=== PATIENT | male | born 1955 | race Caucasian/White ===

== ENCOUNTER → 2018-07-01 07:16 | Outpatient (CLI) | payer OTHER, SELFPAY ==
[2018-07-01 08:01] LABS: Glucose 102 mg/dL (80-110)
[2018-07-01 08:29] LABS: Prostate Specific Antigen Scrn 1.22 ng/mL (0.1-4.0)
[2018-07-01 11:38] LABS: Vitamin D 25 Hydroxy (D3) 47.6 ng/mL (30.0-100.0)
== END ==
PROVIDERS: Family Provider Family Medicine; PCP Student in an Organized Health Care Education/Training Program; Visit Provider Student in an Organized Health Care Education/Training Program
DX: E55.9 Vitamin D deficiency, unspecified (principal); Z12.5 Encounter for screening for malignant neoplasm of prostate; Z71.1 Person with feared health complaint in whom no diagnosis is made
CPT/HCPCS: 36415; 82306; 82947; G0103

== ENCOUNTER → 2019-04-23 10:02 | Outpatient (CLI) | payer OTHER, SELFPAY ==
[2019-04-23 11:31] LABS: Blood Urea Nitrogen 16 mg/dL (9-20); Calcium 10.5 mg/dL (8.4-10.2); Carbon Dioxide 29 mmol/L (22-32); Chloride 103 mmol/L (98-107); Estimated Glomerular Filt Rate > 60.0 mL/min (>60); Glucose 79 mg/dL (80-110); HEMOLYSIS < 15 (0-50); Sodium 141 mmol/L (137-145)
[2019-04-23 11:32] LABS: Potassium 5.4 mmol/L (3.4-5.1)
== END ==
PROVIDERS: PCP Student in an Organized Health Care Education/Training Program; Visit Provider Student in an Organized Health Care Education/Training Program
DX: I10 Essential (primary) hypertension (principal)
CPT/HCPCS: 36415; 80048

== ENCOUNTER 2019-09-15 08:32 | Emergency (ER) | payer OTHER, SELFPAY ==
[2019-09-15 08:42] VITALS: PULSE 89; RESP 16; TEMP 36.8; O2SAT 98; BMI 30.4
[2019-09-15 08:51] VITALS: BP 182/104; PULSE 89; RESP 16; TEMP 36.8; O2SAT 98; BMI 30.4
[2019-09-15 08:52] VITALS: BP 193/110
--- NOTE | 2019-09-15 09:04 | ED_ITS ---
HPI - General Adult General Chief complaint: Altered Mental Status Stated complaint: TROUBLE REMEMBERING THINGS Time Seen by Provider: 09/15/19 08:34 Source: patient Mode of arrival: Ambulatory Limitations: no limitations History of Present Illness HPI narrative: Patient is a 64-year-old male here for evaluation of an event that occurred earlier today. Patient states that last night he went to sleep at his normal [facility]. States he woke up this morning in his normal [facility]. Had no symptoms. States that he went to look out the window and there was a pile of mulch outside his window and he states that he could not remember why it was they are how it got there. He reported no other associated symptoms at the time. He is unsure how long the memory lapse lasted however he did state that he felt like was a very short period of time. He is now completely asymptomatic. He remembers everything about the mulch pile. Has never had anything like this happen in the past. He stated that his and daughter made him come in for an evaluation. Does have a history of hypertension. He did take his blood pressure medicines this morning. Related Data Home Medications Medication Instructions Recorded Confirmed CA PANTOTHENATE/FOLIC ACID/VIT 1 tab PO QDAY #0 12/28/12 06/25/19 (MULTIVITAMIN) Fish Oil (Fish Oil 500 MG Softgel) 500 mg PO QDAY #0 12/28/12 06/25/19 cholecalciferol (vitamin D3) 2,000 unit PO #0 06/07/17 06/25/19 [Vitamin D3] Previous Rx's Medication Instructions Recorded losartan 50 mg-hydrochlorothiazide 1 tab PO DAILY #90 tab 10/20/18 12.5 mg tablet sildenafil (pulm.hypertension) 20 20 mg PO SEE INSTRUCTIONS #30 tab 02/23/19 mg tablet Allergies Allergy/AdvReac Type Severity Reaction Status Date / Time DINA Inhibitors AdvReac Mild Cough Verified 09/15/19 08:55 Review of Systems Constitutional Constitutional: Denies chills, Denies fatigue, Denies frequent falls, Denies headache(s), Denies lethargy and Denies weakness Eyes Eyes: Denies blurry vision, Denies change in vision, Denies diplopia and Denies loss of vision ENT Ears, Nose, Mouth, and Throat: Denies vertigo, Denies dizziness, Denies headache(s), Denies disequilibrium and Denies sore throat Cardiovascular Cardiovascular: Denies chest pain, Denies syncope, Denies palpitations and Denies dyspnea Respiratory Respiratory: Denies cough and Denies dyspnea Gastrointestinal Gastrointestinal: Denies abdominal pain, Denies nausea and Denies vomiting Genitourinary Genitourinary: Denies dysuria Musculoskeletal Musculoskeletal: Denies abnormal gait, Denies myalgias and Denies arthralgias Integumentary/Breasts Skin/Breast: Denies lesions and Denies rash Neurologic Neurologic: Denies abnormal movements, Denies abnormal gait, Denies behavioral changes, Reports confusion, Denies vertigo, Denies dizziness, Denies syncope, Denies frequent falls, Denies headache(s), Denies lack of coordination, Denies focal weakness, Denies loss of vision, Reports memory loss, Denies other visual disturbances, Denies convulsions, Denies seizure-like activity, Denies sensory deficit, Denies paresthesias, Denies tremor(s), Denies disequilibrium and Denies weakness Psychiatric Psychiatric: Denies behavioral changes, Reports confusion and Reports memory loss Endocrine Endocrine: Denies fatigue and Denies palpitations Hematologic/Lymphatic Hematologic/Lymphatic: Denies easy bleeding and Denies easy bruising Patient History Medical History Finger fracture (Resolved) Hyperlipidemia (Chronic) Hypertension (Chronic) Surgical History (Updated 06/02/18 @ 15:17 by Maryanne Johnson) History of colonoscopy with polypectomy (Resolved 10/21/17) History of hand surgery (Resolved 1980) Social History household members: significant other Smoking Status: Current some day smoker Smoking Status: Current some day smoker alcohol intake frequency: holidays/special occasions only Substance Use Type: does not use Exam Initial Vital Signs Initial Vital Signs: Vital Signs Temperature 98.3 F 09/15/19 08:42 Pulse Rate 89 09/15/19 08:42 Respiratory Rate 16 09/15/19 08:42 Pulse Oximetry 98 09/15/19 08:42 Const General: cooperative, comfortable, well developed, well groomed and No acute distress Limitations: mental status not altered HENMT Head: normal to inspection and normocephalic Eyes Pupils: PERRL EOM: EOM intact bilaterally Resp Effort & Inspection: normal respiratory effort Auscultation: clear to auscultation bilaterally Cardio Rate: regular rate Rhythm: regular rhythm GI Inspection: non-distended Palpation: soft Skin Lesions: no lesions Rashes: no rashes Neuro General: alert, awake and oriented x3 Cranial Nerves: CN's II-XI intact bilaterally Cognition: normal cognition Speech: speech normal Gait: normal gait Motor: muscle tone normal throughout Sensory Exam: no sensory deficits noted Coordination: [id number] test normal Extrem General: normal to inspection and capillary refill normal Psych Appearance: grossly normal and well kempt Scores GCS Hardesty coma scale eye opening: Spontaneous Hardesty coma scale verbal response: Orientated Hardesty coma scale motor response: Obey commands Hardesty coma scale total score: 15 Course Vital Signs Vital signs: Vital Signs - 8 hr 09/15/19 08:42 09/15/19 08:51 09/15/19 08:52 Temperature 98.3 F 98.3 F Pulse Rate 89 89 Respiratory Rate 16 16 Blood Pressure 182/104 H Blood Pressure [Right Arm] 193/110 H Pulse Oximetry 98 98 Medical Decision Making [facility] [place] Narrative Medical decision making narrative: Patient had a very short course of memory lapse this morning. He now seems to have completely resolved. He denies any other associated symptoms. He has a completely normal neurologic exam today. Had a long discussion with him regarding his symptoms. Unsure the exact etiology of his symptoms but I do have low suspicion for stroke or TIA given his normal neurologic exam and the lack of his other symptoms earlier today. Has never had the symptoms in the past. Low suspicion for dementia. Low suspicion for intoxication or toxicologic etiology. Patient was hypertensive however this very well could be explained by a is uncertain of what happened earlier today, his anxiety related to it, the fact that he just walked in from the parking lot. I have low suspicion that his high blood pressure caused the symptoms earlier today. I feel that blood work is not going to be helpful for him. I feel that the head CT is going to be unhelpful given the fact that his symptoms have completely resolved. Patient agrees with this. We will hold on further workup for now. We did discuss his blood pressure in the importance of taking his blood pressure at home and recording it so that he could talk with his primary doctor about it. He was given strict return precautions. He expressed understanding and agreement. Discharge Plan Departure Patient Disposition: Home Clinical Impression: Transient memory loss Hypertension Qualifiers: Hypertension type: unspecified Qualified Code(s): I10 - Essential (primary) hypertension Instructions: Essential Hypertension Activity Restrictions/Additional Instructions: I recommend that you take your blood pressure at home like we discussed and record the values so that you can talk with Dr. Saunders about any potential medication changes. You have no restrictions on your activities. If the sympto ms that brought you into the emergency department this morning reoccur or you develop any other new symptoms like we discussed please return to the emergency department for further evaluation. Prescriptions: No Action CA PANTOTHENATE/FOLIC ACID/VIT (MULTIVITAMIN) 1 tab PO QDAY Qty: 0 RF: 0 Fish Oil (Fish Oil 500 MG Softgel) 500 mg PO QDAY Qty: 0 RF: 0 cholecalciferol (vitamin D3) [Vitamin D3] 2,000 UNIT capsule 2,000 unit PO Qty: 0 RF: 0 losartan-hydrochlorothiazide 50-12.5 mg tablet 1 tab PO DAILY Qty: 90 RF: 3 sildenafil (pulm.hypertension) 20 mg tablet 20 mg PO SEE INSTRUCTIONS Qty: 30 RF: 5 Referrals: Jason Sprague MD [Primary Care Provider] -
== END 2019-09-15 09:22 | disposition home or self-care (01) ==
PROVIDERS: Emergency Provider Emergency Medicine; PCP Student in an Organized Health Care Education/Training Program
DX: R41.3 Other amnesia (principal); I10 Essential (primary) hypertension; R41.0 Disorientation, unspecified
CPT/HCPCS: 99283; 99284

== ENCOUNTER → 2020-03-07 16:06 | Outpatient (CLI) | payer MEDICARE, OTHER, SELFPAY ==
[2020-03-07 16:50] LABS: HEMOLYSIS < 15 (0-50)
[2020-03-07 16:57] LABS: BUN Creatinine Ratio 25.6 (6-22); Blood Urea Nitrogen 20 mg/dL (9-20); Calcium 9.8 mg/dL (8.4-10.2); Carbon Dioxide 26 mmol/L (22-32); Chloride 104 mmol/L (98-107); Estimated Glomerular Filt Rate > 60.0 mL/min (>60); Glucose 85 mg/dL (80-110); Potassium 4.1 mmol/L (3.4-5.1); Sodium 138 mmol/L (137-145)
== END ==
PROVIDERS: PCP Student in an Organized Health Care Education/Training Program; Referring Provider Student in an Organized Health Care Education/Training Program; Visit Provider Student in an Organized Health Care Education/Training Program
DX: I10 Essential (primary) hypertension (principal)
CPT/HCPCS: 80048; 84153

== ENCOUNTER → 2020-03-15 08:01 | Outpatient (CLI) | payer MEDICARE, OTHER, SELFPAY ==
--- NOTE | 2020-03-15 08:04 | DI.US.S_ITS ---
PROCEDURE: US ABD AORTA ANEURYSM SCREEN INDICATIONS: SCREEN TECHNIQUE: Real time scanning was performed of the aorta and iliac arteries, with image documentation. COMPARISON: None. FINDINGS: Aorta: Proximal aortic diameter measures 3.2 cm. Mid-aorta measures 2.8 cm. Distal aortic diameter is 1.9 cm. Iliac arteries: Right common iliac artery measures 0 point cm. Left common iliac artery measures 0.9 cm. IMPRESSION: 3.2 centimeter proximal abdominal aortic aneurysm. Recommend follow-up ultrasound in 3 years. Dictated by: Brenna Huerta MD, PhD on 03/15/2020 at 16:13 Approved by: Brenna Huerta MD, PhD on 03/15/2020 at 16:15
== END ==
PROVIDERS: PCP Student in an Organized Health Care Education/Training Program; Referring Provider Student in an Organized Health Care Education/Training Program; Visit Provider Student in an Organized Health Care Education/Training Program
DX: Z13.6 Encounter for screening for cardiovascular disorders (principal); F17.200 Nicotine dependence, unspecified, uncomplicated
CPT/HCPCS: 76706

== ENCOUNTER → 2020-07-14 09:54 | Outpatient (CLI) | payer MEDICARE, OTHER, SELFPAY ==
[2020-07-14] MEDS: COVID-19 VACC #1, MRNA(MOD) 100 MCG/0.5 ML VIAL IM (10:03)
== END ==
PROVIDERS: PCP Student in an Organized Health Care Education/Training Program; Visit Provider Internal Medicine
DX: Z23 Encounter for immunization (principal)
CPT/HCPCS: 0011A; 91301

== ENCOUNTER → 2020-08-11 08:20 | Outpatient (CLI) | payer MEDICARE, OTHER, SELFPAY ==
[2020-08-11] MEDS: COVID-19 VACC #2, MRNA(MOD) 100 MCG/0.5 ML VIAL IM (08:29)
== END ==
PROVIDERS: PCP Student in an Organized Health Care Education/Training Program; Visit Provider Internal Medicine
DX: Z23 Encounter for immunization (principal)
CPT/HCPCS: 0012A; 91301

== ENCOUNTER → 2021-03-15 10:24 | Outpatient (CLI) | payer MEDICARE, OTHER, SELFPAY ==
[2021-03-15 12:50] LABS: BUN Creatinine Ratio 29.2 (6-22); Blood Urea Nitrogen 19 mg/dL (9-20); Calcium 9.7 mg/dL (8.4-10.2); Carbon Dioxide 25 mmol/L (22-32); Chloride 104 mmol/L (98-107); Cholesterol 150 mg/dL (140-199); Estimated Glomerular Filt Rate > 60.0 mL/min (>60); Glucose 107 mg/dL (80-110); HDL Cholesterol 36 mg/dL (40-60); HEMOLYSIS < 15 (0-50); LDL Cholesterol Calculated 74 mg/dL (<100); Potassium 4.4 mmol/L (3.4-5.1); Sodium 137 mmol/L (137-145); Triglycerides 202 mg/dL (35-150)
[2021-03-15 13:21] LABS: Prostate Specific Antigen Scrn 1.25 ng/mL (0.1-4.0)
[2021-03-15 15:16] LABS: Vitamin D 25 Hydroxy (D3) 58.4 ng/mL (30.0-100.0)
== END ==
PROVIDERS: PCP Student in an Organized Health Care Education/Training Program; Referring Provider Student in an Organized Health Care Education/Training Program; Visit Provider Student in an Organized Health Care Education/Training Program
DX: I10 Essential (primary) hypertension (principal); Z12.5 Encounter for screening for malignant neoplasm of prostate; E55.9 Vitamin D deficiency, unspecified; Z13.220 Encounter for screening for lipoid disorders
CPT/HCPCS: 36415; 80048; 80061; 82306; G0103

== ENCOUNTER → 2022-03-18 08:33 | Outpatient (CLI) | payer MEDICARE, OTHER, SELFPAY ==
[2022-03-18 10:36] LABS: BUN Creatinine Ratio 25.6 (6-22); Blood Urea Nitrogen 20 mg/dL (9-20); Calcium 9.7 mg/dL (8.4-10.2); Carbon Dioxide 25 mmol/L (22-32); Chloride 102 mmol/L (98-107); Estimated Glomerular Filt Rate > 60 mL/min (>60); Glucose 86 mg/dL (80-110); HEMOLYSIS < 15 (0-50); Potassium 4.4 mmol/L (3.4-5.1); Sodium 137 mmol/L (137-145)
[2022-03-18 11:01] LABS: Prostate Specific Antigen Scrn 1.58 ng/mL (0.1-4.0)
== END ==
PROVIDERS: PCP Student in an Organized Health Care Education/Training Program; Referring Provider Student in an Organized Health Care Education/Training Program; Visit Provider Student in an Organized Health Care Education/Training Program
DX: Z12.5 Encounter for screening for malignant neoplasm of prostate (principal); I10 Essential (primary) hypertension
CPT/HCPCS: 36415; 80048; G0103

== ENCOUNTER → 2022-05-15 15:42 | Outpatient (CLI) | payer MEDICARE, OTHER, SELFPAY ==
--- NOTE | 2022-05-15 15:44 | DI.RAD.S_ITS ---
PROCEDURE: XR ANKLE RT MIN 3V INDICATIONS: Right ankle strain TECHNIQUE: Three views of the ankle were acquired. COMPARISON: None. FINDINGS: Bones: No acute fractures or dislocations. Ankle mortise is normally aligned. No suspicious bony lesions. Small ossifications adjacent to the distal medial malleolar tip are most likely the sequela remote prior injury. Small plantar calcaneal enthesophyte. Soft tissues: Mild soft tissue edema is seen surrounding the ankle that is more prominent medially. IMPRESSION: No acute osseous abnormality. If clinical suspicion and/or symptoms persist, additional imaging with repeat plain films, or advanced imaging (e.g. CT, MRI) may be helpful for further assessment. Approved by: Ren Alvarez M.D. on 05/15/2022 at 21:13
--- NOTE | 2022-05-15 15:44 | DI.RAD.S_ITS ---
PROCEDURE: XR TIBIA FUBULA RT 2V INDICATIONS: Right lower leg pain TECHNIQUE: 2 views of the tibia and fibula were acquired. COMPARISON: None. FINDINGS: Bones: There is a minimally displaced oblique fracture of the proximal fibular shaft. No widening of the mortise joint is seen. Soft tissues: No suspicious soft tissue calcifications or masses. IMPRESSION: Minimally displaced oblique fracture of the proximal fibular shaft. Approved by: Ren Alvarez M.D. on 05/15/2022 at 21:09
== END ==
PROVIDERS: PCP Student in an Organized Health Care Education/Training Program; Referring Provider Nurse Practitioner Family; Visit Provider Nurse Practitioner Family
DX: S82.831A Other fracture of upper and lower end of right fibula, initial encounter for closed fracture (principal); S96.911A Strain of unspecified muscle and tendon at ankle and foot level, right foot, initial encounter; M79.661 Pain in right lower leg; X58.XXXA Exposure to other specified factors, initial encounter
CPT/HCPCS: 73590; 73610

== ENCOUNTER 2022-10-01 11:14 | Day surgery (SDC) | payer MEDICARE, OTHER, SELFPAY ==
[2022-10-01] VITALS (7 sets, daily range): BP systolic 118–173; BP diastolic 78–97; PULSE 75–95; RESP 11–20; TEMP 36.3–36.8; O2SAT 94–99; BMI 29.6
--- NOTE | 2022-10-01 | PATH_ITS ---
[facility] Accession Number: [id number] No. of containers..01 Tissue . 01 Material submitted: . anal skin - ANAL SKIN TAG . 01 Diagnosis: Skin, Anal, Biopsy: Fibroepithelial polyp. MRV 10/03/2022 1638 Local . 01 Electronically signed: . Carmella Staples MD, Pathologist NPI- [id number] . 01 Gross description: . ANAL SKIN TAG: Received in formalin is 1 fragment(s) of funes, soft tissue measuring 1.2 x 1.0 x 0.6 cm which is inked, trisected and submitted entirely in 2 cassette(s) /CPE 10/02/2022 0653 Local . 01 Pathologist provided ICD-10: L91.8, K62.0 . 01 CPT . 309397 Specimen Comment: A courtesy copy of this report has been sent to [facility] Pathology Performed at: 01 [facility] [address] [place] [address], [place], [place] [id number] MD Nura Macario MD Phone: [phone]
[2022-10-01] MEDS: LACTATED RINGERS 1,000 ML 42 ML IV ×2 (12:04→13:16)
--- NOTE | 2022-10-01 12:05 | PM.PREOP ---
Pre-operative Note Interval Note History & Physical reviewed/Exam performed by Physician: Yes Changes to H&P: No
--- NOTE | 2022-10-01 13:12 | SUR.OPER ---
Lithotomy on padded OR bed, head on pillow, arms secured on padded arm boards at <90 degrees abduction. Legs secured in padded yellow fins stirrups.
[2022-10-01] MEDS: BUPIVACAINE LIPOSOME 266 MG/20 ML VIAL INJ (13:24)
--- NOTE | 2022-10-01 13:52 | P.OP_ITS ---
Operative Date/Time/Diagnoses Date of procedure: 10/01/22 Time of procedure: 13:52 Pre-op diagnosis: Perianal pain and palpable polyp like lesion Post-op diagnosis: other (Large posterior anal fissure with polypoid skin tag associated, smaller anterior anal fissure. Additionally there are right lateral external hemorrhoid and left posterior external hemorrhoids) Procedure & Clinicians Procedure: Removal of anal skin tag, and exam under anesthesia Same procedure as scheduled: Yes Indications: Mr. Ortiz is a 64-year-old male who presented to my office with severe perirectal pain. The in office examination was limited due to pain, but was able to appreciate a drain sponge feeling polypoid lesion in his anus by palpation. For this combination of reasons I have recommended an exam under anesthesia Surgeon: Ruthie Soares Click Yes if Unassisted: Yes Anesthesia Type: General (LMA) Operative Notes Findings: There were some external hemorrhoids: Right lateral and left posterior which were not bleeding and not thrombosed. There was also left posterior internal hemorrhoid that seemed somewhat engorged. The main problem however was a large posterior midline anal fissure with an a ssociated skin tag that was polypoid and firm. Additionally there was an anterior midline anal fissure which was somewhat smaller but had some perianal edema around it. Closure Type: not applicable Specimen(s): other (polypoid perianal skin tag) Procedure in detail: Patient was taken to the operating room and placed in a lithotomy position. LMA anesthesia was induced. A time-out was performed and bilateral SCDs were in place prior to induction. No antibiotics were given or indicated. The perir ectal area was prepped and draped in the usual fashion. Examination of the perianal region revealed some average appearing external hemorrhoids in the right lateral and left posterior position. Digital rectal exam redemonstrated the hard polypoid lesion that was palpated in the office. Anoscopy then revealed a very large and bleeding posterior anal fissure. A polypoid lesion was associated with the internal tip of this lesion. Additional examination revealed another smaller anterior anal fissure. And an internal left posterior hemorrhoid that was a little engorged. There was bleeding from the anterior lesion as well as the internal hemorrhoid and the posterior fissure was bleeding somewhat as well. Anesthesia care provider noted that upon placing the anoscope the blood pressure increased and the patient displayed physiologic signs of pain. I at this point then injected the Exparel around the anus and the intersphincteric groove. I also injected the base of both the anterior and posterior fissures, ultimately using the entire 20 mL The skin tag was removed with electrocautery just going through a small mucosal connection with the base. This lesion was sent as a specimen to pathology. The end piece of that was somewhat firm and rubbery. That biopsy site was hemostatic as electrocautery was used. The electrocautery was carefully kept far from where an anal sphincter would be. Overall patient tolerated the procedure well and went in good condition to the postoperative care unit. Some gauze and mesh panties were placed. Complications: none Post-operative Condition: stable Disposition: PACU Plan for aftercare: Treatment for anal fissure: Fiber supplement twice daily and topical nifedipine cream.
== END 2022-10-01 14:52 | disposition home or self-care (01) ==
PROVIDERS: PCP Student in an Organized Health Care Education/Training Program; Referring Provider Surgery; Visit Provider Surgery
PROC: (CPT 45990; principal; 2022-10-01 12:15)
DX: K64.4 Residual hemorrhoidal skin tags (principal); K62.0 Anal polyp; K60.2 Anal fissure, unspecified
CPT/HCPCS: 46922; C9290; J2250; J2405; J2704; J3010

== ENCOUNTER 2023-02-12 09:09 | Day surgery (SDC) | payer MEDICARE, OTHER, SELFPAY ==
[2023-02-12 09:28] VITALS: BMI 30.4
[2023-02-12 09:41] VITALS: BP 155/88; PULSE 83; RESP 16; TEMP 36.3; O2SAT 98
[2023-02-12] MEDS: LACTATED RINGERS 1,000 ML 100 ML IV (09:43)
--- NOTE | 2023-02-12 10:16 | P.HP_ITS ---
History of Present Illness History of Present Illness Date Patient Seen: 02/12/23 Time Patient Seen: 10:16 Chief complaint: Dx Colonoscopy Narrative: H/o anal fissure now resolved. Last colonoscopy 10 years. no current symptoms [facility] Medical History Aortic aneurysm Finger fracture Hyperlipidemia Hypertension Mixed hyperlipidemia Rosacea Surgical History History of colonoscopy with polypectomy (10/21/17) History of hand surgery (1980) Social History household members: spouse Smoking Status: Current some day smoker Meds Home Medications and Allergies Home Medications Medication Instructions Recorded Confirmed Type CA PANTOTHENATE/FOLIC ACID/VIT 1 tab PO QDAY ##0 12/28/12 02/12/23 History (MULTIVITAMIN) Fish Oil (Fish Oil 500 MG Softgel) 500 mg PO QDAY ##0 12/28/12 01/08/23 History cholecalciferol (vitamin D3) 50 2,000 unit PO DAILY ##0 06/07/17 02/12/23 History mcg (2,000 unit) capsule (Vitamin D3) nifedipine ointment See Rx Instructions .Route 10/01/22 02/12/23 Rx .COMPLEX #1 unit psyllium husk (with sugar) 3.4 1 tbsp PO BID #822 grams 10/01/22 02/12/23 Rx gram/7 gram oral powder (Fiber (psyllium husk-sugar)) amlodipine 10 mg tablet (Norvasc) 10 mg PO DAILY #90 tabs 01/08/23 02/12/23 Rx chlorthalidone 25 mg tablet 25 mg PO DAILY blood pressure #90 01/08/23 02/12/23 Rx tabs sildenafil 100 mg tablet (Viagra) 50 - 100 mg PO DAILY PRN sexual 01/08/23 02/12/23 Rx activity #30 tabs Allergies Allergy/AdvReac Type Severity Reaction Status Date / Time No Known Drug Allergies Allergy Verified 02/12/23 09:22 Review of Systems Review of Systems ROS: Yes All systems reviewed with the patient and are negative except as otherwise documented Exam Vital Signs (past 8 hours): - 08/23/23 09:41 Temperature 97.4 F L Pulse Rate 83 Respiratory Rate 16 Blood Pressure 155/88 H Pulse Oximetry 98 Oxygen Delivery Method Room Air Oxygen Delivery Method Room Air Const General: cooperative Nutritional Appearance: average body habitus HENMT Head: normocephalic and atraumatic Eyes Sclera: sclerae normal Neck Neck: trachea midline Resp Effort & Inspection: normal respiratory effort and able to speak in complete sentences Cardio Rate: regular rate Rhythm: regular rhythm GI Palpation: soft Skin General: turgor normal Neuro General: patient alert, patient awake and patient oriented x3 Psych Mental Status: mental status grossly normal Judgment: judgment good Assessment & Plan Assessment & Plan narrative: colon cancer screening colonoscopy with anesthesia Time Spent With Patient Time with patient: less than 30 minutes
--- NOTE | 2023-02-12 10:23 | PM.OP.COLON ---
Operative Date/Time/Diagnoses Date of procedure: 02/12/23 Time of procedure: 10:24 Pre-op diagnosis: Colon cancer screening Post-op diagnosis: same Procedure & Clinicians Study performed: Colonoscopy with anesthesia Same procedure as scheduled: Yes Indications: Colon cancer screening Surgeon: Carmella Harrison Procedure Notes Procedure in detail: Preop diagnosis: Colon cancer screening Postop diagnosis: Same Operative procedure: Colonoscopy with anesthesia Surgeon: Angie Harrison MD Findings: No polyps, scant moderate-sized diverticulosis of the sigmoid colon Procedure: Patient placed in lateral position. Rectal exam performed rectum feel hypertrophied papillae but no masses. Scope was inserted into the rectum and advanced to ileocecal valve with the help of external abdominal pressure. Insufflation extraction of the scope including retroflex in the rectum had the above findings. Impression: No polyps, moderate size scant diverticuli of the sigmoid colon. Plan: Repeat colonoscopy in 10 years unless otherwise indicated by change in clinical condition Findings: divertiulosis Specimen(s): none sent Complications: none Post-procedure Recommendations: Colonoscopy in 10 years Follow up: as needed Disposition: PACU
[2023-02-12 10:50] VITALS: BP 95/63; PULSE 78; RESP 16; TEMP 36.2; O2SAT 91
[2023-02-12 10:55] VITALS: BP 95/63; PULSE 75; RESP 16; O2SAT 91
[2023-02-12 11:00] VITALS: BP 100/65; PULSE 82; RESP 16; O2SAT 95
[2023-02-12 11:07] VITALS: BP 138/97; PULSE 75; RESP 16; TEMP 36.7; O2SAT 12
== END 2023-02-12 11:28 | disposition home or self-care (01) ==
PROVIDERS: Surgery; PCP Family Medicine; Referring Provider Surgery; Visit Provider Surgery
PROC: 0DJD8ZZ Inspection of Lower Intestinal Tract, Via Natural or Artificial Opening Endoscopic (ICD-10-PCS; CPT 45378; principal; 2023-02-12 10:15)
DX: Z12.11 Encounter for screening for malignant neoplasm of colon (principal); K57.30 Diverticulosis of large intestine without perforation or abscess without bleeding
CPT/HCPCS: G0121; J2704

== ENCOUNTER → 2023-02-19 06:45 | Outpatient (CLI) | payer MEDICARE, OTHER, SELFPAY ==
--- NOTE | 2023-02-19 06:47 | DI.US.S_ITS ---
PROCEDURE: US RETRO PERITONEAL LIMITED INDICATIONS: HISTORY SMOKING TECHNIQUE: Real time scanning was performed of the aorta and iliac arteries, with image documentation. COMPARISON: None. FINDINGS: Aorta: Proximal aorta is not well seen due to overlying bowel gas. Mid-aorta measures 2.0 cm, previously 2.8 cm. Distal aortic diameter is 1.9 cm, previously 1.9 cm. Iliac arteries: Right common iliac artery measures 1.0 cm. Left common iliac artery measures 1.0 cm. IMPRESSION: 1. Proximal abdominal aorta is not well seen on the current study due to overlying bowel gas. 2. No evidence of aortic aneurysm is seen in mid to distal abdominal aorta. No aneurysm is seen in bilateral common iliac arteries. Dictated by: Ranjith Arroyo M.D. on 02/19/2023 at 8:44 Approved by: Ranjith Arroyo M.D. on 02/19/2023 at 8:45
== END ==
PROVIDERS: PCP Family Medicine; Referring Provider Family Medicine; Visit Provider Family Medicine
DX: I71.40 Abdominal aortic aneurysm, without rupture, unspecified (principal)
CPT/HCPCS: 76775

== ENCOUNTER → 2023-02-27 07:55 | Outpatient (CLI) | payer MEDICARE, OTHER, SELFPAY ==
[2023-02-27 08:41] LABS: Alanine Aminotransferase 77 IU/L (<50); Albumin 4.3 g/dL (3.5-5.0); Albumin Globulin Ratio 1.7 (1.0-2.8); Alkaline Phosphatase 82 U/L (38-126); Aspartate Aminotransferase 53 IU/L (17-59); BUN Creatinine Ratio 17.1 (6-22); Bilirubin Total 0.7 mg/dL (0.2-1.3); Blood Urea Nitrogen 13 mg/dL (9-20); Calcium 9.6 mg/dL (8.4-10.2); Carbon Dioxide 27 mmol/L (22-32); Chloride 102 mmol/L (98-107); Cholesterol 156 mg/dL (140-199); Estimated Glomerular Filt Rate > 60 mL/min (>60); Globulin 2.5 g/dL (1.7-4.1); Glucose 110 mg/dL (80-110); HDL Cholesterol 38 mg/dL (40-60); HEMOLYSIS < 15 (0-50); LDL Cholesterol Calculated 91 mg/dL (<100); Potassium 4.3 mmol/L (3.4-5.1); Sodium 137 mmol/L (137-145); Total Protein 6.8 g/dL (6.3-8.2); Triglycerides 134 mg/dL (35-150)
[2023-02-27 09:10] LABS: Prostate Specific Antigen 1.47 ng/mL (0.10-4.00)
[2023-02-27 11:09] LABS: Hep C Virus Ab w/Reflex Quant NEGATIVE s/c (NEGATIVE)
== END ==
PROVIDERS: PCP Family Medicine; Referring Provider Family Medicine; Visit Provider Family Medicine
DX: E78.2 Mixed hyperlipidemia (principal); Z00.00 Encounter for general adult medical examination without abnormal findings; I10 Essential (primary) hypertension; I71.9 Aortic aneurysm of unspecified site, without rupture; Z12.5 Encounter for screening for malignant neoplasm of prostate
CPT/HCPCS: 36415; 80053; 80061; 84153; 86803; G0103

== ENCOUNTER → 2024-03-26 09:04 | Outpatient (CLI) | payer MEDICARE, OTHER, SELFPAY ==
[2024-03-26 10:18] LABS: Hemoglobin A1C% w Est Avg Glu 5.5 % (4.0-6.0)
[2024-03-26 10:33] LABS: Alanine Aminotransferase 79 IU/L (<50); Albumin 4.2 g/dL (3.5-5.0); Albumin Globulin Ratio 1.8 (1.0-2.8); Alkaline Phosphatase 83 U/L (38-126); Aspartate Aminotransferase 62 IU/L (17-59); BUN Creatinine Ratio 22.1 (6-22); Bilirubin Total 0.7 mg/dL (0.2-1.3); Blood Urea Nitrogen 17 mg/dL (9-20); Carbon Dioxide 26 mmol/L (22-32); Chloride 102 mmol/L (98-107); Cholesterol 114 mg/dL (140-199); Estimated Glomerular Filt Rate > 60 mL/min (>60); Globulin 2.4 g/dL (1.7-4.1); Glucose 112 mg/dL (80-110); HDL Cholesterol 38 mg/dL (40-60); HEMOLYSIS < 15 (0-50); LDL Cholesterol Calculated 40 mg/dL (<100); Potassium 3.9 mmol/L (3.4-5.1); Sodium 135 mmol/L (137-145); Total Protein 6.6 g/dL (6.3-8.2); Triglycerides 178 mg/dL (35-150)
[2024-03-26 11:00] LABS: Prostate Specific Antigen Scrn 1.69 ng/mL (0.1-4.0)
== END ==
PROVIDERS: PCP Family Medicine; Referring Provider Family Medicine; Visit Provider Family Medicine
DX: Z00.00 Encounter for general adult medical examination without abnormal findings (principal); R73.01 Impaired fasting glucose; E78.2 Mixed hyperlipidemia; Z12.5 Encounter for screening for malignant neoplasm of prostate; I10 Essential (primary) hypertension
CPT/HCPCS: 36415; 80053; 80061; 83036; G0103

== ENCOUNTER → 2025-03-08 07:23 | Outpatient (CLI) | payer MEDICARE, OTHER, SELFPAY ==
--- NOTE | 2025-03-08 07:26 | DI.US.S_ITS ---
PROCEDURE: US RETRO PERITONEAL LIMITED INDICATIONS: F/U aortic aneurysm TECHNIQUE: Real time scanning was performed of the aorta and iliac arteries, with image documentation. COMPARISON: [facility], RETRO PERITONEAL LIMITED, 02/19/2023, 6:59. FINDINGS: Aorta: Proximal aortic diameter measures 3.1 cm, previously 3.2. Mid-aorta measures 2.6 cm. Distal aortic diameter is 1.9 cm. Iliac arteries: Right common iliac artery measures 1.1 cm. Left common iliac artery measures 1.2 cm. IMPRESSION: Stable proximal aortic aneurysm measuring 3.1 centimeter, previously 3.2 centimeter. Continued 3 year follow-up is recommended per consensus guidelines. Dictated by: Elvin Ku M.D. on 03/08/2025 at 9:37 Approved by: Elvin Ku M.D. on 03/08/2025 at 9:38
[2025-03-08 09:15] LABS: Alanine Aminotransferase 57 IU/L (<50); Albumin 4.4 g/dL (3.5-5.0); Albumin Globulin Ratio 1.9 (1.0-2.8); Alkaline Phosphatase 80 U/L (38-126); Blood Urea Nitrogen 14 mg/dL (9-20); Calcium 9.7 mg/dL (8.4-10.2); Carbon Dioxide 23 mmol/L (22-32); Chloride 106 mmol/L (98-107); Cholesterol 104 mg/dL (140-199); Estimated Glomerular Filt Rate > 60 mL/min (>60); Globulin 2.3 g/dL (1.7-4.1); Glucose 100 mg/dL (70-99); HDL Cholesterol 40 mg/dL (40-60); HEMOLYSIS < 15 (0-50); Potassium 4.3 mmol/L (3.4-5.1); Sodium 138 mmol/L (137-145); Total Protein 6.7 g/dL (6.3-8.2); Triglycerides 153 mg/dL (35-150)
== END ==
PROVIDERS: PCP Family Medicine; Referring Provider Family Medicine; Visit Provider Family Medicine
DX: Z00.00 Encounter for general adult medical examination without abnormal findings (principal); I71.40 Abdominal aortic aneurysm, without rupture, unspecified; Z12.5 Encounter for screening for malignant neoplasm of prostate; E78.2 Mixed hyperlipidemia; I10 Essential (primary) hypertension; R55 Syncope and collapse
CPT/HCPCS: 36415; 76775; 80053; 80061; G0103

== ENCOUNTER → 2025-04-29 10:10 | Outpatient (CLI) | payer MEDICARE, OTHER, SELFPAY ==
--- NOTE | 2025-04-29 10:11 | DI.NM.S_ITS ---
PROCEDURE: NM EXERCISE TREADMILL NON NUC
== END ==
LOC: NUCM 10:11
PROVIDERS: PCP Family Medicine; Referring Provider Family Medicine; Visit Provider Family Medicine
DX: R55 Syncope and collapse (principal); I10 Essential (primary) hypertension; E78.2 Mixed hyperlipidemia
CPT/HCPCS: 93017